=== PATIENT | male | born 1980 | race Caucasian/White ===

== ENCOUNTER 2023-02-24 13:10 | Outpatient (AMB) | payer OTHER, BC, SELFPAY ==
[2023-02-24 13:22] VITALS: BP 122/80; PULSE 117; RESP 13; O2SAT 97; BMI 36.6
--- NOTE | 2023-02-24 13:22 | MHC.OFFWIV ---
Intake Vital Signs 02/24/23 13:22 Height 6 ft Weight 270 lb BMI 36.6 BP 122/80 Blood Pressure Location Lt brachial Position Sitting Respiration 13 Pulse 117 H Pulse Source Pulse Oximeter Pulse Oximetry (%) 97 Oxygen Delivery Method Room Air Intake Visit Reasons: L Knee pain Intake Note: Patient is here for left knee injury. Patient reports he slipped and fell at work and heard a pop, favored the knee and then today patient reports pain has worsened. Patient Tobacco Use Status: Former Tobacco user Accompanied by: Self / Same As Patient Allergies bactrim Allergy (Severe, Uncoded 02/24/23 13:30) Hives Do you need a note to return to daycare/school/sports/work: Yes Return to daycare/school/sports/work/other note: work ([employer]) HPI HPI Comments History of Present Illness Details Here today for workers comp case injury happened yesterday 02/23/23 in the afternoon incident: up in [employer], pulled into customers driveway, when getting out of car, slipped on the snow. [place] a pop in L knee, immediately had pain. In the middle of the night knee felt unstable. Pain with walking. Applied a brace and took home medications (percocet). 60 minutes spent reviewing and completing workers comp forms, providing education and reviewing treatment plan PFSH Social History Patient Tobacco Use Status: Former Tobacco user Review of Systems Const All systems reviewed & are unremarkable except as noted in HPI and below Physical Exam Vital Signs: Last Vital Signs Pulse 117 H 02/24/23 13:22 Resp 13 02/24/23 13:22 BP 122/80 02/24/23 13:22 Pulse Ox 97 02/24/23 13:22 Oxygen Delivery Method Room Air 02/24/23 13:22 BMI result Body Mass Index 36.6 Extrem Other: antalgic gait, favoring L side, knee buckling with wt bearing + varus and valgus on L Left lower extremity: normal to inspection, no joint enlargement and knee Details: normal to inspection, tenderness Location: of the lateral joint line, abnormal ROM Details: pain with active ROM Details: with flexion and pain with passive ROM Details: with flexion, Low's Test Details: negative medially and laterally and Apley's Test Details: negative Assessment & Plan Assessment & Plan (1) Encounter related to worker's compensation claim: Code(s): Z02.6 - Encounter for examination for insurance purposes Plan: . (2) Left lateral knee pain: Code(s): M25.562 - Pain in left knee Plan: . (3) Knee instability: Code(s): M25.369 - Other instability, unspecified knee Qualifiers: Laterality: left Qualified Code(s): M25.362 - Other instability, left knee Plan: . Orders: Orders XR knee LT 4V Today M25.369 - Other instability, unspecified knee, M25.562 - Pain in left knee, Z02.6 - Encounter for examination for insurance purposes Referrals Orthopedics Referral M25.369 - Other instability, unspecified knee, M25.562 - Pain in left knee, Z02.6 - Encounter for examination for insurance purposes Patient Instructions: no bending/squatting/kneeling. no lifting more than 15 lbs. able to complete job duties that can be done in seated position out of work tomorrow enroll in portal to get xray results wear brace daily use otc pain relievers Coding Level of Care Code Est Pt Level 5 (95854) Diagnoses Encounter related to worker's compensation claim Z02.6 Left lateral knee pain M25.562 Instability of left knee joint M25.362 Laterality: left Time Spent (min) 60 Comment
== END 2023-02-24 14:00 | disposition home or self-care (01) ==
PROVIDERS: Visit Provider Nurse Practitioner Family
DX: M25.562 Pain in left knee (principal); M25.362 Other instability, left knee; Z04.2 Encounter for examination and observation following work accident
CPT/HCPCS: 99215

== ENCOUNTER 2023-03-03 09:18 | Outpatient (AMB) | payer OTHER, BC, SELFPAY ==
[2023-03-03 09:20] VITALS: BMI 36.6
--- NOTE | 2023-03-03 09:20 | A.OFFVIS_ITS ---
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 The patient states that he slipped on ice while getting out of his work truck on 02/23/2023. He hyperextended his left knee and had acute onset of pain. The patient states that he also ?felt a pop? in his knee at that time. Since that time his pain and symptoms of instability have gotten worse. He has tried wearing a knee brace which gives him minimal relief. He has also taken ibuprofen, Tylenol and oxycodone which gave him only mild relief. He denies any symptoms in his left knee prior to this injury. Allergies bactrim Allergy (Severe, Uncoded 02/24/23 13:30) Hives Medication List - Last Reconciled 03/03/23 by Haim Joya MD lisinopril 5 mg PO DAILY [facility] Social History Patient Tobacco Use Status: Former Tobacco user Physical Exam Vital Signs: BMI result Body Mass Index 36.6 Const Other: Well-nourished well-developed very friendly male awake alert and oriented x3 in no acute distress Extrem Other: Bilateral lower extremity examination shows good capillary refill, no skin lesions noted, normal sensation light touch Left knee examination shows a minimal effusion, minimal crepitus with range of motion, tenderness along his medial joint line, positive Low's test, no instability Results Reviewed Results Reviewed: Standing full weight-bearing x-rays of the patient's left knee show no acute bony abnormalities Assessment & Plan Assessment & Plan (1) Left knee pain: Code(s): M25.562 - Pain in left knee Plan Mr. Sweet presents with progressively worsening left knee pain and mechanical symptoms most likely due to a tear of his medial meniscus. Thus, I will send the patient for an MRI of his left knee for further evaluation. I will see him back once the MRI is completed to discuss the findings and treatment options. Will call me prior to that time should his symptoms worsen in any way. I spent 22 minutes in reviewing the patient's records and imaging studies, seeing the patient and documenting in the medical record. Orders: Orders XR knee LT 3V Today M25.562 - Pain in left knee MR knee LT wo con Today M25.562 - Pain in left knee Coding Level of Care Code New Pt Level 2 (12200) Diagnoses Left knee pain M25.562
== END 2023-03-03 09:53 | disposition home or self-care (01) ==
PROVIDERS: Visit Provider Orthopaedic Surgery
DX: M25.562 Pain in left knee (principal)
CPT/HCPCS: 99202

== ENCOUNTER 2023-03-03 10:34 | Outpatient (REF) | payer OTHER, SELFPAY ==
--- NOTE | ~2023-03-03 | XR_ITS ---
EXAMINATION: XR KNEE, LEFT CLINICAL INFORMATION: Pain. COMPARISON: None available. TECHNIQUE: AP, lateral and sunrise views of the left knee are submitted. FINDINGS: No fracture or joint effusion. Alignment is anatomic. Joint spaces are maintained. No abnormal soft tissue calcification. XR/XR knee LT 3V IMPRESSION: Normal left knee.
== END 2023-03-03 10:35 | disposition home or self-care (01) ==
LOC: HO.HOSX 10:34
PROVIDERS: Visit Provider Orthopaedic Surgery
DX: M25.562 Pain in left knee (principal)
CPT/HCPCS: 73562; 99202

== ENCOUNTER 2023-03-17 13:33 | Outpatient (AMB) | payer OTHER, SELFPAY ==
[2023-03-17 13:35] VITALS: BMI 36.6
--- NOTE | 2023-03-17 13:35 | MHC.OFFVIS ---
Intake Vital Signs 03/17/23 13:35 Height 6 ft Weight 270 lb BMI 36.6 Intake Visit Reasons: ov- MRI review left knee Intake Note: Alo is a 42 year old male who presents complaints of progressively worsening left knee pain and giving way. The patient states that he slipped on ice while getting out of his work truck on 02/23/2023. He hyperextended his left knee and had acute onset of pain. The patient states that he also ?felt a pop? in his knee at that time. Since that time his pain and symptoms of instability have gotten worse. He has tried wearing a knee brace which gives him minimal relief. He has also taken ibuprofen, Tylenol and oxycodone which gave him only mild relief. He denies any symptoms in his left knee prior to this injury. Allergies bactrim Allergy (Severe, Uncoded 02/24/23 13:30) Hives Medication List - Last Reconciled 03/17/23 by Haim Joya MD lisinopril 5 mg PO DAILY [facility] Social History Patient Tobacco Use Status: Former Tobacco user Physical Exam Vital Signs: BMI result Body Mass Index 36.6 Const Other: Well-nourished well-developed very friendly male awake alert and oriented x3 in no acute distress Extrem Other: Bilateral lower extremity examination shows good capillary refill, no skin lesions noted, normal sensation light touch Left knee examination shows a minimal effusion, tenderness along his lateral joint line, positive Low's test, no instability Results Reviewed Results Reviewed: MRI of the patient's left knee shows a bucket-handle tear of the lateral meniscus Assessment & Plan Assessment & Plan (1) Left knee pain: Code(s): M25.562 - Pain in left knee Plan Mr. Sweet presents with left knee pain and mechanical symptoms due to a tear of his lateral meniscus. I had a lengthy discussion with the patient regarding the treatment options. At this point the patient has failed continued non operative treatments. The risks and benefits of left knee surgery were discussed at length with the patient. The patient is interested in proceeding with surgery. Because of the patient's young age he might be a candidate for a meniscus repair procedure versus a partial meniscectomy. The patient is interested in learning more about the risks and benefits of such a procedure. Thus, I will arrange for the patient to have a follow-up appointment with Dr. Perez. The patient will follow-up as instructed. I spent 20 minutes in reviewing the patient's records and imaging studies, seeing the patient and documenting in the medical record. Coding Level of Care Code Est Pt Level 2 (86583) Diagnoses Left knee pain M25.562
== END 2023-03-17 14:20 | disposition home or self-care (01) ==
PROVIDERS: Visit Provider Orthopaedic Surgery
DX: S83.282A Other tear of lateral meniscus, current injury, left knee, initial encounter (principal)
CPT/HCPCS: 99213

== ENCOUNTER → 2023-03-17 13:33 | Outpatient (BNVA) | payer OTHER, SELFPAY | PROVIDERS: Visit Provider Orthopaedic Surgery | DX: S83.282A Other tear of lateral meniscus, current injury, left knee, initial encounter (principal) | CPT/HCPCS: 99212 ==

== ENCOUNTER 2023-03-29 13:36 | Outpatient (AMB) | payer OTHER, SELFPAY ==
--- NOTE | 2023-03-29 14:05 | A.OFFVIS_ITS ---
Intake Intake Visit Reasons: ov- left knee pain Intake Note: Alo is a 42 year old male who presents complaints of progressively worsening left knee pain and giving way. The patient states that he slipped on ice while getting out of his work truck on 02/23/2023. He hyperextended his left knee and had acute onset of pain. The patient states that he also ?felt a pop? in his knee at that time. Since that time his pain and symptoms of instability have gotten worse. He was last seen with Dr. Joya who referred him for surgical discussion of Lateral Meniscal Repair. Allergies bactrim Allergy (Severe, Uncoded 02/24/23 13:30) Hives HPI ov- left knee pain HPI Details Alo is a 42 year old man who presents to discuss treatment for his left lateral meniscus tear. He was referred here by Dr. Joya to discuss surgery. he complains of pain & weakness in his left knee, and says this gives way at times with WB. He describes painful catching with movements. He fell out of his truck on 02/23/23, hyperextended his knee and felt a painful pop in his knee. He has found limited relief from Tylenol, NSAIDs, or Oxycodone. [facility] Social History Patient Tobacco Use Status: Former Tobacco user Review of Systems Const All systems reviewed & are unremarkable except as noted in HPI and below Physical Exam Const General: no acute distress, alert and awake Orientation/consciousness: patient oriented x3 HEENT Head: Yes normocephalic and Yes atraumatic Eyes EOM: EOMs intact bilaterally Resp Effort & Inspection: normal respiratory effort and able to speak in complete sentences Cardio Jugular venous distension: no JVD Skin General skin exam: turgor normal Rashes: no rashes Neuro General: patient oriented x3 Extrem Other: No effusion left knee TTP lateral compartmetn with + lateral Steinmen's Psych Appearance: grossly normal Affect: normal affect Attitude: cooperative Results Reviewed Results Reviewed: I personally reviewed relevant radiographs. Torn bucket handle lateral meniscus tear with portion displaced into intercondylar notch. Assessment & Plan Assessment & Plan (1) Lateral meniscus tear: Code(s): S83.289A - Other tear of lateral meniscus, current injury, unspecified knee, initial encounter Plan: 42 yo healthy M with a displaced and unstable left lateral meniscus tear. I recommend knee arthroscopy with possible lateral meniscus repair versus meniscectomy. I discussed this with him. I outlined the anatomy and the surgical possibilities including extended recovery and need for further surgery as well as the risk of pain, infection, stiffness, potential medical complications and extended time out of work. He expressed understanding and would like to proceed forward. He nunez remain on light duty until surgery. Plan Prepared for Andres Perez MD by Juanito Jesus, manager of medical, on 03/29/23 at 2:16 PM, EST. Coding Level of Care Code Est Pt Level 4 (87751) Diagnoses Lateral meniscus tear S83.289A
== END 2023-03-29 14:49 | disposition home or self-care (01) ==
PROVIDERS: Visit Provider Orthopaedic Surgery
DX: S83.282A Other tear of lateral meniscus, current injury, left knee, initial encounter (principal)
CPT/HCPCS: 99214

== ENCOUNTER → 2023-03-29 13:36 | Outpatient (BNVA) | payer OTHER, SELFPAY | PROVIDERS: Visit Provider Orthopaedic Surgery | DX: S83.282A Other tear of lateral meniscus, current injury, left knee, initial encounter (principal) | CPT/HCPCS: 99212 ==

== ENCOUNTER 2023-04-28 05:54 | Day surgery (SDC) | payer OTHER, SELFPAY ==
--- NOTE | 2023-04-27 13:02 | HO.ANESPROP2 ---
Documented by User: Gini Coy NP 04/27/23 13:02 HPI - Anesthesia Eval Consult details Narrative: 43yo M for Knee Arthroscopy, possbile minesectomy versus repair PMFSH Active Problems Active Problems: All Active Problems (Updated 04/27/23 @ 10:29 by Rossana Mckeon RN) Lateral meniscus tear (Acute) Left knee pain (Acute) Knee instability (Acute) Left lateral knee pain (Acute) Encounter related to worker's compensation claim (Acute) Past Medical History Medical History Kidney stones HTN (hypertension) Surgical History Surgical History History of cystoscopy Social History Social History Patient Tobacco Use Status: Current everyday Tobacco user Tobacco use type: Cigarette Cigarette Packs Per Day: 0.5 Cigarettes Per Day: 10.0 Use of substances other than those prescribed or required for medical reasons: Yes Are you DNR?: No Advance Directives: No Advance Directives Information Provided: Yes Meds Allergies Allergy/AdvReac Type Severity Reaction Status Date / Time bactrim Allergy Severe Hives Uncoded 02/24/23 13:30 Home Medications Medication Instructions Recorded Confirmed Last Taken Type lisinopril 5 mg tablet 5 mg PO DAILY 02/24/23 04/28/23 Unknown History Assessment and Plan Assessment Anesthesia Assessment: Chart Reviewed Documented by User: Bailee Bejarano MD 04/28/23 07:55 PMFSH Past Medical History Medical History Kidney stones HTN (hypertension) Family History Family history of problems with anesthesia: No Surgical History Surgical History History of cystoscopy History of Problems with Anesthesia: No Social History Social History Patient Tobacco Use Status: Current everyday Tobacco user Tobacco use type: Cigarette Cigarette Packs Per Day: 0.5 Cigarettes Per Day: 10.0 Use of substances other than those prescribed or required for medical reasons: Yes Are you DNR?: No Advance Directives: No Advance Directives Information Provided: Yes Meds Allergies Allergy/AdvReac Type Severity Reaction Status Date / Time bactrim Allergy Severe Hives Uncoded 02/24/23 13:30 Home Medications Medication Instructions Recorded Confirmed Last Taken Type lisinopril 5 mg tablet 5 mg PO DAILY 02/24/23 04/28/23 Unknown History Exam Airway Mallampati Class: II TM Dist: >3cm Neck ROM: Full Heart: rrr Lungs: cta Assessment and Plan Assessment Anesthesia Assessment: Anesthesia Plan Discussed and Smoking Cess. Discussed Final Anesthetic Review Family History of Problems with Anesthesia: No History of Problems with Anesthesia: No NPO: Yes ASA Class: III (obese, pippa, smoker, htn, non compliant with all meds) Final Preanesthetic Review: No Changes in Pt Med Stat, Meds/Allgs Chart Reviewed, Consent Obtained/Reviewed and Anes Risks/Benef Reviewed Patient Risk: Intermediate Procedure Risk: Low Anesthetic Plan Anesthetic Plan: GA Disposition: Standard PACU
[2023-04-28 06:20] VITALS: BMI 38.2
[2023-04-28 06:26] VITALS: BP 131/90; PULSE 81; RESP 16; TEMP 36.7; O2SAT 96
[2023-04-28] MEDS: Lactated Ringers 1,000 ML 100 ML IVCONT (06:37)
--- NOTE | 2023-04-28 07:32 | MHC.SHP ---
Pre-Procedural Eval Section A - 24 Hr Update-Section A only Date of Service: 04/28/23 The patient is an INPATIENT: No Changes since office visit: No Cold of Flu in the past 2 weeks, No New Medical Problems, No Changes in Medication and No Patient answered all questions The patient has been examined within 24 hours of the surgical procedure. The History & Physical has been completed within 30 days and I have reviewed it.: Yes Section B - Complete if H&P > 30 days Chief Complaint: Other tear of medial meniscus, current injury, lef Allergies: Allergies Allergy/AdvReac Type Severity Reaction Status Date / Time bactrim Allergy Severe Hives Uncoded 02/24/23 13:30 Plan I have reviewed the history and physical and performed a pertinent physical examination on my patient. No changes have occurred unless specified. Time Spent With Patient Time: Total time managing care of this patient today ____ minutes.
--- NOTE | 2023-04-28 08:19 | PM.OP ---
Brief Operative Note Date of Service: 04/28/23 Pre-op diagnosis: Left knee lateral meniscus tear Post-op diagnosis: same Procedure: Partial lateral meniscectomy, left Surgeon: Andres Perez MD Anesthesia: GETA Was an Ingredient Scaler Helper used for this Procedure?: No Estimated blood loss (mL): 2 Tourniquet time (min): 18 IV fluids (mL): 500 Pathology: none sent Condition: stable Disposition: PACU
[2023-04-28 08:32] VITALS: BP 131/90; PULSE 81; RESP 16; TEMP 36.7; O2SAT 96
[2023-04-28 08:37] VITALS: BP 145/105; PULSE 77; RESP 16; O2SAT 96
[2023-04-28 08:42] VITALS: BP 136/103; PULSE 74; RESP 16; O2SAT 97
[2023-04-28 08:47] VITALS: BP 134/102; PULSE 75; RESP 16; O2SAT 97
[2023-04-28] MEDS: HYDROmorphone HCl 0.5 MG/0.5 ML SYRINGE 0.25 MG IVPUSH (08:53)
[2023-04-28] MEDS: oxyCODONE HCl Immed Release 5 MG TABLET PO (08:54)
[2023-04-28 09:02] VITALS: BP 137/104; PULSE 73; RESP 20; TEMP 36.3; O2SAT 96
--- NOTE | 2023-05-07 14:31 | P.OP_ITS ---
Operative Note Operative Note Date of Service: 04/28/23 Narrative: Date of Service: 04/28/23 Pre-op diagnosis: Left knee lateral meniscus tear Post-op diagnosis: same Procedure: Partial lateral meniscectomy, left Surgeon: Andres Perez MD Anesthesia: GETA Was an Renewable Energy Engineer used for this Procedure?: No Estimated blood loss (mL): 2 Tourniquet time (min): 18 IV fluids (mL): 500 Pathology: none sent Condition: stable Disposition: PACU Procedure in detail: Patient was brought to the operating room placed supine on the arthroscopic table and prepped and draped in standard sterile fashion. A time-out was called to identify proper site proper procedure proper surgeon and IV antibiotics per weight were administered. I began by exsanguinating the limb and insufflating tourniquet to 300 mm Hg. Then made a standard anterolateral stab incision. The knee was insufflated with water and 30 degree arthroscope was placed. There was grade 1 fibrillations of the patella but overall the suprapatellar pouch and the gutters were clean. I descended into the medial compartment where I made my medial portal under direct visualization. There was a normal medial meniscus. The root was intact and there were no cartilage changes in the medial compartmentl The ACL was examined and found to be intact and the lateral compartment awas entered. There was a complex tear of the lateral meniscus at the posterior horn. The root was intact. The meniscus was probed and the loose flaps were debrided with a shaver. A biter was also used to stabilize the loose flaps. There was nothing to repair.. I was satisfied with the extent of partial meniscectomy. My pictures were taken. I then removed all instrumentation and closed the portals with skin glue. 25 mL of 2% Marcaine with epinephrine was injected into the joint and the surrounding soft tissues. Patient was then placed in sterile dressing extubated brought recovery room stable condition. There were no known complications.
== END 2023-04-28 09:59 | disposition home or self-care (01) ==
PROVIDERS: Visit Provider Orthopaedic Surgery
PROC: (CPT 29870; principal; 2023-04-28 07:30)
DX: S83.272A Complex tear of lateral meniscus, current injury, left knee, initial encounter (principal); W18.49XA Other slipping, tripping and stumbling without falling, initial encounter; Y93.89 Activity, other specified; Y92.89 Other specified places as the place of occurrence of the external cause; Y99.8 Other external cause status; M25.562 Pain in left knee; M23.52 Chronic instability of knee, left knee; I10 Essential (primary) hypertension; Z87.442 Personal history of urinary calculi; Z79.899 Other long term (current) drug therapy; Z88.1 Allergy status to other antibiotic agents; F17.210 Nicotine dependence, cigarettes, uncomplicated
CPT/HCPCS: 29881; J0131; J0171; J0690; J1100; J1170; J1885; J2405; J2704; J2795; J3010

== ENCOUNTER → 2023-04-28 05:54 | Outpatient (BNV) | payer OTHER, SELFPAY | PROVIDERS: Visit Provider Orthopaedic Surgery | DX: S83.272A Complex tear of lateral meniscus, current injury, left knee, initial encounter (principal) | CPT/HCPCS: 29881 ==

== ENCOUNTER 2023-05-04 15:26 | Outpatient (AMB) | payer OTHER, SELFPAY ==
--- NOTE | 2023-05-04 15:36 | A.OFFVIS_ITS ---
Intake Intake Visit Reasons: PO LT Knee 04/28/23 NE Intake Note: Alo is a 43 year old male who presents today for a post op appointment s/p LT Knee 04/28/23 NE. Patient reports he is doing well. Allergies bactrim Allergy (Severe, Uncoded 02/24/23 13:30) Hives HPI PO LT Knee 04/28/23 NE HPI Details 43-year-old male who presents in the off ice today 6 days status post a left knee partial lateral meniscectomy, which was performed on 04/28/[address] Perez. Patient reports having soreness in the left knee. [facility] Medical History Kidney stones HTN (hypertension) Surgical History History of cystoscopy Social History Comment: counts correct Patient Tobacco Use Status: Current everyday Tobacco user Tobacco use type: Cigarette Cigarette Packs Per Day: 0.5 Cigarettes Per Day: 10.0 Review of Systems Const All systems reviewed & are unremarkable except as noted in HPI and below Physical Exam Const General: cooperative, healthy appearing and no acute distress Resp Effort & Inspection: normal respiratory effort and able to speak in complete sentences Cardio Rate: regular rate Peripheral pulses: Peripheral pulses 2+ throughout GI Palpation (GI): Soft to palpation Skin Lesions: no lesions Rashes: no rashes Extrem Other: Left knee: Incision site is clean, dry, and intact. No surrounding erythema or drainage. No signs of infection. ROM is 10-90 degrees. NVI. Assessment & Plan Assessment & Plan (1) Lateral meniscus tear: Comment: Left knee partial lateral meniscectomy 04/28/2023 NE Code(s): S83.289A - Other tear of lateral meniscus, current injury, unspecified knee, initial encounter Qualifiers: Encounter type: subsequent encounter Laterality: left Meniscus tear of knee type: unspecified type Tear current or old: unspecified Qualified Code(s): S83.282D - Other tear of lateral meniscus, current injury, left knee, subsequent encounter Plan Mr. Sweet is a 43-year-old male who presents in the office today 6 days status post a left knee partial lateral meniscectomy, which was performed on 04/28/[address] Perez. Patient reports having soreness in the left knee. Patient will have his first appointment for physical therapy tomorrow, 05/05/2023, to work on ROM and modalities. We discussed that he can tentatively return to golfing in 4 weeks, but this will be discussed again at his next appointment. He can discontinue the use of crutches at this time. He is also able to resume his psoriasis injections. Follow up will be in 4 weeks, or sooner if needed. Current pain regiment: --Hydrocodone-acetaminophen 5-325 mg PO Q8H PRN with 21 tabs Patient Instructions: Scribed by Nancy Weber medical technician, for Eloisa Enriquez PA-C on 05/04/2023 at 3:30 pm, EST. Coding Level of Care Code Global (13388) Diagnoses Tear of lateral meniscus of left knee, unspecified tear type, unspecified whether old or current tear, subsequent encounter S83.282D Encounter type: subsequent encounter Laterality: left Meniscus tear of knee type: unspecified type Tear current or old: unspecified
== END 2023-05-04 15:47 | disposition home or self-care (01) ==
PROVIDERS: Visit Provider Physician Assistant
DX: S83.282D Other tear of lateral meniscus, current injury, left knee, subsequent encounter (principal)
CPT/HCPCS: 99024

== ENCOUNTER → 2023-05-04 15:26 | Outpatient (BNVA) | payer OTHER, SELFPAY | PROVIDERS: Visit Provider Physician Assistant | DX: S83.282D Other tear of lateral meniscus, current injury, left knee, subsequent encounter (principal) | CPT/HCPCS: 99212 ==

== ENCOUNTER 2023-06-01 10:16 | Outpatient (AMB) | payer OTHER, SELFPAY ==
--- NOTE | 2023-06-01 10:22 | A.OFFVIS_ITS ---
Intake Vital Signs 06/01/23 10:24 Height 6 ft Weight 288 lb BMI 39.1 Intake Visit Reasons: PO LT Knee 04/28/23 NE Intake Note: Alo is a 43 year old male who presents for a post op appointment s/p left knee 04/28/23 NE. Patient is doing well, he states feeling some soreness when sitting or standing for a bit. He states that PT is going well and he is noticing improvements. Allergies bactrim Allergy (Severe, Uncoded 02/24/23 13:30) Hives HPI PO LT Knee 04/28/23 NE HPI Details 43-year-old male who presents in the off ice today 6 days status post a left knee partial lateral meniscectomy, which was performed on 04/28/[address] Perez. I last saw the patient in the office on 05/04/2023 when he was instructed to discontinue the use of crutches. He was scheduled to attend PT to work on ROM and modalities. He was also educated he may resume his psoriasis injections. While in the office today the patient reports he is doing well. He reports some soreness from sitting or standing for a longer period of time. He confirms attending PT and states it is going well. He states he has noticed some improvement. [facility] Medical History Kidney stones HTN (hypertension) Surgical History History of cystoscopy Social History Comment: counts correct Patient Tobacco Use Status: Current everyday Tobacco user Tobacco use type: Cigarette Cigarette Packs Per Day: 0.5 Cigarettes Per Day: 10.0 Review of Systems Const All systems reviewed & are unremarkable except as noted in HPI and below Physical Exam Vital Signs: BMI result Body Mass Index 39.1 Const General: cooperative, healthy appearing and no acute distress Resp Effort & Inspection: normal respiratory effort and able to speak in complete sentences Cardio Rate: regular rate Peripheral pulses: Peripheral pulses 2+ throughout GI Palpation (GI): Soft to palpation Skin Lesions: no lesions Rashes: no rashes Extrem Other: Left knee: Incision site is clean, dry, and intact. No surrounding erythema or drainage. No signsi of infection. ROM is 5-110 degrees. NVI. Assessment & Plan Assessment & Plan (1) Lateral meniscus tear: Comment: Left knee partial lateral meniscectomy 04/28/2023 NE Code(s): S83.289A - Other tear of lateral meniscus, current injury, unspecified knee, initial encounter Qualifiers: Encounter type: subsequent encounter Laterality: left Meniscus tear of knee type: unspecified type Tear current or old: unspecified Qualified Code(s): S83.282D - Other tear of lateral meniscus, current injury, left knee, subsequent encounter Plan Mr. Sweet is a 43-year-old male who presents in the office today 6 days status post a left knee partial lateral meniscectomy, which was performed on 04/28/[address] Perez. I last saw the patient in the office on 05/04/2023 when he was instructed to discontinue the use of crutches. He was scheduled to attend PT to work on ROM and modalities. He was also educated he may resume his psoriasis injections. While in the office today the patient reports he is doing well. He reports some soreness from sitting or standing for a longer period of time. He confirms attending PT and states it is going well. He states he has noticed some improvement. Patient will continue to work with PT. 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 A note was supplied to him in the office today. Follow-up will be in 4 weeks, or sooner if needed. Patient Instructions: Scribed by Nancy Weber medical practice assistant, for Eloisa Enriquez PA-C on 06/01/2023 at 11:01 am, EST. Coding Level of Care Code Global (70701) Diagnoses Tear of lateral meniscus of left knee, unspecified tear type, unspecified whether old or current tear, subsequent encounter S83.282D Encounter type: subsequent encounter Laterality: left Meniscus tear of knee type: unspecified type Tear current or old: unspecified
[2023-06-01 10:24] VITALS: BMI 39.1
== END 2023-06-01 10:42 | disposition home or self-care (01) ==
PROVIDERS: Visit Provider Physician Assistant
DX: S83.282D Other tear of lateral meniscus, current injury, left knee, subsequent encounter (principal)
CPT/HCPCS: 99024

== ENCOUNTER → 2023-06-01 10:16 | Outpatient (BNVA) | payer OTHER, SELFPAY | PROVIDERS: Visit Provider Physician Assistant | DX: S83.282D Other tear of lateral meniscus, current injury, left knee, subsequent encounter (principal) | CPT/HCPCS: 99212 ==

== ENCOUNTER 2023-06-16 14:00 | Outpatient (RCR) | payer OTHER, SELFPAY ==
--- NOTE | 2023-05-05 13:22 | MHC.PT.EP ---
[facility] [place] Office [place] Office [place] Office [address] Jeremi Diop [address] [phone] F: [phone] F: [phone] F: [phone] F: [phone] Physical Therapy Plan of Care Date of Evaluation: 05/05/23 Date of Surgery: 04/28/23 Diagnosis: L KNEE (PER BRIEF OP NOTE, PARTIAL LATERAL MENISCECTOMY) Assessment: Pt IS 43 YO M REFERRED TO PT FROM ORTHO (MARYELLEN) S/P L KNEE LATERAL PARTIAL MENISCECTOMY ON 04/28/23 (1 WEEK PO TODAY). AT TIME OF EVAL OP NOTE NOT IN COMPUTER. PER SCRIPT AND BRIEF OP NOTE SURGERY = LATERAL PARTIAL MENISCECTOMY. OF NOTE, Pt REPORTS PLAN WAS TO BE MENISCUS REPAIR, BUT REPAIR WAS NOT ABLE TO BE PERFORMED. PRESENTS TO PT WITH ANTALGIC GT, LIMITED L KNEE ROM AND STRENGTH WITH PAIN AND SWELLING. SHOULD BENEFIT FROM PT TO ADDRESS THESE ISSUES Frequency and Duration: The patient will be seen 2X/WK X 8 WKS Short Term Goals: 1. IMPROVED GT PATTERN WITH LRAD/NO AD 2. L KNEE ROM 0-120 3. INCREASED AWARNESS OF KNEE CARE 4. Pt ABLE TO PERF SLR WITHOUT QUAD LAG X 2 SETS OF 10 ON L Nursing Home Goals: 1. L KNEE ROM 0-130 2. RTW 3. DECREASED L KNEE PAIN AT LEAST 75% WITH ADLS 4. IMPROVED LEFI (12/80 AT SOC) 5. L QUAD AND PF STRENGTH 5/5 EA Treatment Plan: Modalities to reduce pain, spasms and effusion. Manual therapy to restore motion and function. Therapeutic exercise to improve strength and flexibility. Neuromuscular re-education for posture and balance. Therapeutic activities to return to functional activities of daily living. Electronically signed by: ABHISHEK PAL PT Please sign and return to therapist. Thank you for your referral.
--- NOTE | 2023-08-04 14:38 | MHC.PT.DC ---
[facility] [place] Office [place] Office [place] Office [address] Jeremi Diop [address] [phone] F: [phone] F: [phone] F: [phone] F: [phone] Physical Therapy Discharge Report Diagnosis: L KNEE Date of Surgery: 04/28/23 Date of Evaluation: 05/05/23 Date of Discharge: 08/04/23 Treatments to Date: 7 Cancellations to Date: No Shows to Date: Discharge Status: Achieved Goals Improved Function Independent with HEP Patient Elected to Stop Discharge Summary: PER NOTE FROM 06/09/23 HAS MET MOST PT GOALS. MAY START BTW NEXT WEDNESDAY. HAS ONE MORE PT APPT FOR NEXT WEDNESDAY Pt THEN NO SHOWED THAT APPT[ End ] 06/17/23 SB PT, DPT called and LM on patient VM requeting callback to assess status. Pt NS for appt on 06/16/23. It was documented pt had plan to RTW but was awaiting sign-off. Electronically signed by: ABHISHEK PAL PT Please sign and return to therapist. Thank you for your referral.
== END 2023-08-04 14:39 | disposition home or self-care (01) ==
LOC: HO.PTWFD 14:00
PROVIDERS: Visit Provider Orthopaedic Surgery
DX: S83.282D Other tear of lateral meniscus, current injury, left knee, subsequent encounter (principal)
CPT/HCPCS: 97110; 97116; 97140; 97161; 97530; 97535

== ENCOUNTER 2023-06-29 12:09 | Outpatient (AMB) | payer SELFPAY ==
--- NOTE | 2023-06-29 12:27 | MHC.OFFVIS ---
Vital Signs 06/29/23 12:29 Height 6 ft Weight 288 lb BMI 39.1 Intake Visit Reasons: PO LT Knee 04/28/23 NE-follow up Intake Note: Alo is a 43 year old male who presents for a post op appointment s/p left knee 04/28/23 NE. Patient reports he is doing well, still having a bit of swelling the the ankles. Physical therapy went well and he showed improvements. Allergies bactrim Allergy (Severe, Uncoded 02/24/23 13:30) Hives HPI HPI PO LT Knee 04/28/23 NE-follow up: Details: 43-year-old male who presents in the office today 2 months status post a left knee partial lateral meniscectomy, which was performed on 04/28/[address] Perez. I last saw the patient in the office on 06/01/2023 when he was encouraged to continue to work with PT. We discussed his [id number]-ot-coet status. 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 While in the office today the patient reports he is doing well. He states he still has some edema in the bilateral ankles. Confirms participating in PT and states he is showing improvement. 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 [facility] Medical History Kidney stones HTN (hypertension) Surgical History History of cystoscopy Social History Comment: counts correct Patient Tobacco Use Status: Current everyday Tobacco user Tobacco use type: Cigarette Cigarette Packs Per Day: 0.5 Cigarettes Per Day: 10.0 Review of Systems Const All systems reviewed & are unremarkable except as noted in HPI and below Physical Exam Vital Signs: BMI result Body Mass Index 39.1 Const General: cooperative, healthy appearing and no acute distress Resp Effort & Inspection: normal respiratory effort and able to speak in complete sentences Cardio Rate: regular rate Peripheral pulses: Peripheral pulses 2+ throughout GI Palpation (GI): Soft to palpation Skin Lesions: no lesions Rashes: no rashes Extrem Other: Left knee: Incision site is well approximated and completely healed. No surrounding erythema or drainage. No signs of infection. Full ROM. NVI. Assessment & Plan Assessment & Plan (1) Lateral meniscus tear: Comment: Left knee partial lateral meniscectomy 04/28/2023 NE Code(s): S83.289A - Other tear of lateral meniscus, current injury, unspecified knee, initial encounter Category: Medical Qualifiers: Encounter type: subsequent encounter Laterality: left Meniscus tear of knee type: unspecified type Tear current or old: unspecified Qualified Code(s): S83.282D - Other tear of lateral meniscus, current injury, left knee, subsequent encounter Plan Mr. Sweet is a 43-year-old male who presents in the office today 2 months status post a left knee partial lateral meniscectomy, which was performed on 04/28/[address] Perez. I last saw the patient in the office on 06/01/2023 when he was encouraged to continue to work with PT. We discussed his [id number] status. 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 While in the office today the patient reports he is doing well. He states he still has some edema in the bilateral ankles. Confirms participating in PT and states he is showing improvement. 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 Prior to today's encounter the patient has been working on light duty restrictions. At this time, we have agreed to decrease these restrictions of no more than 5 windshield replacements per day. I would like for him to increase one windshield replacement per week until he has met his prior replacement status before the injury. After he has achieved his prior status, he may return to work full-time, regular duty. Follow up will be PRN, or sooner if needed. Patient Instructions: Scribed by Nancy Weber medical records library professor, for Eloisa Enriquez PA-C on 06/29/2023 at 12:41 pm, EST. Coding Level of Care Code Global (71900) Diagnoses Tear of lateral meniscus of left knee, unspecified tear type, unspecified whether old or current tear, subsequent encounter S83.282D Encounter type: subsequent encounter Laterality: left Meniscus tear of knee type: unspecified type Tear current or old: unspecified
[2023-06-29 12:29] VITALS: BMI 39.1
== END 2023-06-29 15:09 | disposition home or self-care (01) ==
PROVIDERS: Visit Provider Physician Assistant
DX: S83.282D Other tear of lateral meniscus, current injury, left knee, subsequent encounter (principal)
CPT/HCPCS: 99024

== ENCOUNTER → 2023-06-29 12:09 | Outpatient (BNVA) | payer OTHER, SELFPAY | PROVIDERS: Visit Provider Physician Assistant | DX: S83.282D Other tear of lateral meniscus, current injury, left knee, subsequent encounter (principal) | CPT/HCPCS: 99212 ==